=== PATIENT | female | born 1995 | race African-American/Black ===

== ENCOUNTER 2017-07-30 13:22 | Emergency (ER) | payer BC, MEDICAID ==
[~2017-07-30] VITALS: Ht 157.5 cm; Wt 55.0 kg
[~2017-07-30 13:22] MED LIST: FOLI-43 PO; PREN-142 PO; PREN-88
[2017-07-30 17:40] LABS: CLARITY URINE CLEAR (CLEAR); COLOR URINE YELLOW (YELLOW); GLUCOSE URINE NEGATIVE (NEGATIVE); KETONES URINE 2+ (NEGATIVE); LEUKOCYTE ESTERASE URINE NEGATIVE (NEGATIVE); NITRITE URINE NEGATIVE (NEGATIVE); OCCULT BLOOD URINE NEGATIVE (NEGATIVE); PROTEIN URINE NEGATIVE (NEGATIVE); SPECIFIC GRAVITY URINE 1.027 (1.005-1.030); UROBILINOGEN URINE 0.2 E.U./dL (0.2-1.0)
[2017-07-30] MEDS ORDERED: KETOROLAC 30MG/ML VIAL IV STA (19:27)
[2017-07-30] MEDS ORDERED: SODIUM CHLORIDE 0.9% 1,000 ML IV ONE (19:27)
[2017-07-30] MEDS ORDERED: DIPHENHYDRAMINE 50MG/ML VIAL IV ONE (19:30)
[2017-07-30] MEDS ORDERED: METOCLOPRAMIDE HCL 10MG/2ML VIAL IV ONE (19:30)
[2017-07-30 19:44] LABS: BASOPHILS % 1.1 % (0.0-2.0); EOSINOPHILS % 5.4 % (0.0-5.0); HEMATOCRIT. 33.6 % (36.0-48.0); LYMPHOCYTES % 37.9 % (20.0-50.0); MEAN CORPUSCULAR HEMOGLOBIN 26.3 pg (28.0-32.0); MEAN CORPUSCULAR VOLUME 80.6 fL (81.0-99.0); MEAN PLATELET VOLUME 8.8 fl (7.4-10.4); MONOCYTES % 9.1 % (2.0-8.0); NEUTROPHILS % 46.5 % (40.0-76.0); PLATELET 221 x1000/uL (130-400); RED BLOOD CELL COUNT 4.18 mill/uL (4.2-5.4); RED CELL DISTRIBUTION WIDTH 17.2 % (11.6-14.6)
[2017-07-30 19:49] LABS: CHLORIDE 106 mEq/L (98-107)
[2017-07-30 19:57] LABS: CARBON DIOXIDE 23 mEq/L (21-32)
[2017-07-30 21:33] VITALS: BP 96/61
== END 2017-07-30 21:33 | disposition home or self-care (01) ==
LOC: ER 14:25
DX: R51 Headache (principal); R06.02 Shortness of breath; R42 Dizziness and giddiness
CPT/HCPCS: 36415; 80053; 81003; 81025; 85025; 96361; 96374; 96375; 99284; J1200; J1885; J2765; J7030; Z7610

== ENCOUNTER 2023-02-11 18:14 | Emergency (ER) | payer BC, MEDICAID, OTHER ==
[~2023-02-11] VITALS: Ht 157.5 cm; Wt 61.0 kg
[2023-02-11] MEDS ORDERED: IBUP-2028 MT (19:14)
[2023-02-11 19:15] VITALS: BP 116/83
[2023-02-11] MEDS ORDERED: KETOROLAC 60MG/2ML VIAL IM ONE (19:15)
== END 2023-02-11 19:54 | disposition home or self-care (01) ==
LOC: ER 18:14
DX: J02.9 Acute pharyngitis, unspecified (principal); R05.9 Cough, unspecified
CPT/HCPCS: 96372; 99283; J1885; Z7610

== ENCOUNTER 2023-04-01 17:30 | Emergency (ER) | payer OTHER ==
[~2023-04-01] VITALS: Ht 157.5 cm; Wt 60.5 kg
[~2023-04-01 17:30] MED LIST changes: -FOLI-43 PO; +IBUP-2028 MT; -PREN-142 PO; -PREN-88
[2023-04-01 17:32] VITALS: BP 103/65; O2SAT 100
[2023-04-01 20:45] LABS: CLARITY URINE CLOUDY (CLEAR); COLOR URINE YELLOW (YELLOW); KETONES URINE 1+ (NEGATIVE); LEUKOCYTE ESTERASE URINE 3+ (NEGATIVE); NITRITE URINE NEGATIVE (NEGATIVE); OCCULT BLOOD URINE NEGATIVE (NEGATIVE); PH URINE 5.5 (4.5-8.0); PROTEIN URINE 1+ (NEGATIVE); SPECIFIC GRAVITY URINE 1.034 (1.005-1.030)
[2023-04-01] MEDS ORDERED: METR-167 MT (22:00)
[2023-04-01 22:13] VITALS: PULSE 85; RESP 16; TEMP 98.7
[2023-04-05 06:08] LABS: NEISSERIA GONORRHOEAE NAA Negative (Negative)
== END 2023-04-01 22:10 | disposition home or self-care (01) ==
LOC: ER 18:01
DX: N76.0 Acute vaginitis (principal); Z98.890 Other specified postprocedural states
CPT/HCPCS: 87491; 87591; 81003; 81025; 87210; 99283; Z7610